=== PATIENT | male | born 1955 | race Caucasian/White ===

== ENCOUNTER 2017-01-26 11:00 | Emergency (ER) | payer OTHER ==
[~2017-01-26] VITALS: Ht 182.9 cm; Wt 94.1 kg
== END 2017-01-26 11:49 | disposition short-term general hospital (02) ==
LOC: ER 11:00
DX: S68.610A Complete traumatic transphalangeal amputation of right index finger, initial encounter (principal); Z79.2 Long term (current) use of antibiotics; Z79.891 Long term (current) use of opiate analgesic; Z79.899 Other long term (current) drug therapy; W23.0XXA Caught, crushed, jammed, or pinched between moving objects, initial encounter